=== PATIENT | female | born 1995 | race Caucasian/White ===

== ENCOUNTER 2023-05-23 11:45 | Outpatient (CLI) | payer OTHER | END 2023-05-23 12:01 | disposition home or self-care (01) | LOC: SONOGRAMA 11:45 | PROVIDERS: ATTEND Obstetrics & Gynecology | DX: N60.19 Diffuse cystic mastopathy of unspecified breast (principal) ==

== ENCOUNTER 2023-05-28 14:49 | Outpatient (CLI) | payer OTHER | END 2023-05-28 15:00 | disposition home or self-care (01) | LOC: SONOGRAMA 14:49 | PROVIDERS: ATTEND Obstetrics & Gynecology | DX: E04.1 Nontoxic single thyroid nodule (principal); E03.9 Hypothyroidism, unspecified ==